=== PATIENT | male | born 1950 | race Asian ===

== ENCOUNTER 2016-12-24 19:30 | Emergency (ER) | payer OTHER ==
[~2016-12-24] VITALS: Ht 167.6 cm; Wt 72.6 kg
[2016-12-24 19:56] VITALS: BP 165/82
[2016-12-24] MEDS ORDERED: Bacitracin Oint UD TOPIC ONE (20:15)
[2016-12-24] MEDS ORDERED: Lidocaine 1% MPF 10mg/ml 5ml INJ ONE (20:15)
[2016-12-24] MEDS ORDERED: CEPHALEXIN500 MG ORAL (21:20)
[2016-12-24] MEDS ORDERED: IBUPROFEN600 MG ORAL (21:20)
[2016-12-24] MEDS ORDERED: NORCO 5-325 TA1 EAC1 ORAL (21:20)
[2016-12-24 21:50] VITALS: BP 150/79
--- NOTE | 2016-12-25 09:34 | Diagnostic Imaging Report ---
Indications: Injury with laceration to left lung, pain Technique: 3 views left hand Findings: Comparison: None There is a comminuted fracture of the first distal phalanx, involving both the diaphysis and tuft, mildly displaced. They do not extend to the proximal articular surface. Surrounding soft tissues are swollen and irregular. The overlying nailbed may be disrupted. No obvious foreign body. No additional fracture, dislocation, joint space widening or other acute change identified. IMPRESSION: Rupture left first distal phalanx as described, likely open
--- NOTE | 2016-12-25 13:09 | Emergency Room Report ---
History of Present Illness General Chief Complaint: Laceration Source: Patient Present Illness HPI The patient is a 66-year-old male presenting for left thumb pain. He is right hand dominant. He states that he was at work today when a heavy metal object fell onto the left thumb. He noticed immediate pain and bleeding. Pain is now an 8/10 dull ache and does not radiate from the thumb. He denies any numbness or tingling. He denies previous injury of the thumb. He denies any other injury. Allergies: Coded Allergies: No Known Allergies (Unverified , 12/24/16) Patient History Past Medical History: see triage record Pertinent Family History: none Reviewed Nursing Documentation: PMH: Agreed, PSxH: Agreed Nursing Documentation-PMH Past Medical History: No Stated History Review of Systems All Other Systems: negative except mentioned in HPI Physical Exam Vital Signs Date Time Temp Pulse Resp B/P (MAP) Pulse Ox O2 Delivery O2 Flow Rate FiO2 12/24/16 19:53 98.2 66 18 165/82 98 Room Air Sp02 EP Interpretation: reviewed, normal General Appearance: no apparent distress, alert, GCS 15, non-toxic Head: normocephalic, atraumatic Eyes: bilateral eye normal inspection, bilateral eye PERRL ENT: hearing grossly normal, normal pharynx, no angioedema, normal voice Neck: full range of motion, supple/symm/no masses Musculoskeletal: normal range of motion - L thumb, swelling - L distal thumb, tender - TTP over the L distal thumb Neurologic: alert, oriented x3, responsive, motor strength/tone normal, sensory intact, speech normal Psychiatric: judgement/insight normal, memory normal, mood/affect normal, no suicidal/homicidal ideation Skin: normal turgor, other - subungual hematoma L thumb, laceration - 2cm linear horizontal laceration of the L thumb distal to IPJ Lymphatic: no adenopathy Procedures Splinting Splinting : Consent: Verbal Location: R thumb Pre-Made Type: metal Splint: metal finger Pre-Proc Neuro Vasc Exam: normal Post-Proc Neuro Vasc Exam: normal Patient Tolerated: Well Complications: None Laceration/Wound Repair Laceration/Wound Repair : Consent: Verbal Wound Location: upper extremity Wound's Depth, Shape: into muscle, linear Wound Length (cm): 2 Wound Explored: clean Irrigated w/ Saline (ccs): 200 Betadine Prep?: Yes Anesthesia: 1% Lidocaine Volume Anesthetic (ccs): 5 Wound Debrided: minimal Wound Repaired With: sutures Suture Size/Type: 4:0, proline Number of Sutures: 3 Layer Closure?: No Sterile Dressing Applied?: Yes Splint Applied?: Yes Type of Splint Applied: metal finger Sling Applied?: No Patient Tolerated: Well Complications: None Nail Trepanation Nail Trepanation : Consent: Verbal Nail Trepanation Location: L thumb Method of Drainage: nail cauterized Sterile Dressing Applied: Yes Finger Splint: Yes Patient Tolerated: Well Complications: None Medical Decision Making PA Attestation Dr. Dumont is my supervising physician. Patient management was discussed with my supervising physician Diagnostic Impression: Primary Impression: Laceration Additional Impression: Open fracture ER Course The patient is a 66-year-old male presenting for left thumb pain. Ddx considered include but not limited to sprain/strain, fracture, contusion, dislocation, subungual hematoma PE: NAD L thumb: there is a subungual hematoma. SILT. Full AROM of the thumb. 2cm linear horizontal laceration over the dorsal thumb distal to IPJ. Subungual hematoma was evacuated with cauterization. Dark red blood was released. The wound was irrigated with normal saline and cleaned with betadine. A 27g needle was used to administer 5mL of lidocaine w.o epi for digital block. 3 sutures were placed with 4-0 prolene. The wound was approximated and the patient tolerated the procedure well. The wound was then cleaned and bacitracin was applied. A metal finger splint was applied The patient will continue to keep the wound clean and dry and will followup with hand surgeon and workers compensation. Hand surgeon referral given. Suture instructions provided. ER precautions are given Other X-Ray Diagnostic Results Other X-Ray Diagnostic Results : X-Ray ordered: L hand # of Views/Limited Vs Complete: 3 View Indication: Pain EP Interpretation: Yes Interpretation: other - distal phalanx fracture L thumb Impression: Other - fracture of L distal phalanx with soft tissue injury Interpreting ER Provider: DO ROSA Ybarra Scribe Text I am acting as scribe for my supervising physician. My supervising physician's interpretation of the L hand xrays shows a distal phalanx fracture with soft tissue injury Last Vital Signs Date Time Temp Pulse Resp B/P (MAP) Pulse Ox O2 Delivery O2 Flow Rate FiO2 12/24/16 21:50 98.2 68 16 150/79 99 Room Air Status: improved Disposition: HOME, SELF-CARE Condition: Improved Scripts Ibuprofen* (MOTRIN*) 600 Mg Tablet 600 MG ORAL Q8H Y for For Pain, #30 TAB 0 Refills Prov: GUNNAR FLETCHER.ABrianna 12/24/16 Cephalexin* (KEFLEX*) 500 Mg Capsule 500 MG ORAL EVERY 6 HOURS, #28 CAP Prov: GUNNAR FLETCHER.A. 12/24/16 Hydrocodone Bit/Acetaminophen 5-325* (NORCO 5-325 TABLET*) 1 Each Tablet 1 TAB ORAL Q6HR Y for For Pain, #10 TAB Prov: GUNNAR FLETCHER 12/24/16 Referrals: BRISEYDA HURTADO M.D. Patient Instructions: Laceration Care, Adult, Finger Fracture Additional Instructions: I discussed my findings with the patient. All questions and concerns have been answered. Treatment and medication compliance have been addressed. I advised the patient that they need to follow up with PMD in 3-5 days. Return to ED if pain remains or worsens, numbness or tingling occurs, new rash is noticed, fever is noticed, or if needed for any reason. Patient verbalized understanding of discharge instructions. Please follow up with hand specialist as discussed as soon as possible. GUNNAR FLETCHER Dec 25, 2016 13:09
== END 2016-12-24 21:59 | disposition home or self-care (01) ==
LOC: EMR 20:15
DX: S62.522B Displaced fracture of distal phalanx of left thumb, initial encounter for open fracture (principal); S61.112A Laceration without foreign body of left thumb with damage to nail, initial encounter; S60.112A Contusion of left thumb with damage to nail, initial encounter; W20.8XXA Other cause of strike by thrown, projected or falling object, initial encounter; Y93.9 Activity, unspecified; Y99.9 Unspecified external cause status
CPT/HCPCS: 29130